=== PATIENT | female | born 1945 | race Caucasian/White ===

== ENCOUNTER 2022-01-15 21:59 | Emergency (ER) | payer BC, OTHER ==
[2022-01-16] MEDS ORDERED: HYDROcodone/Acetaminophen 10/325 mg Tablet ONE (00:20)
== END 2022-01-16 00:41 | disposition home or self-care (01) ==
LOC: ERS 21:59
DX: M62.838 Other muscle spasm (principal)

== ENCOUNTER 2022-01-30 10:46 | Outpatient (CLI) | payer MEDICARE | END 2022-01-30 10:47 | disposition home or self-care (01) | LOC: MRI 10:46 | PROVIDERS: ATTEND Nurse Practitioner Family | DX: M47.816 Spondylosis without myelopathy or radiculopathy, lumbar region (principal); M48.061 Spinal stenosis, lumbar region without neurogenic claudication; M43.16 Spondylolisthesis, lumbar region; N28.9 Disorder of kidney and ureter, unspecified | CPT/HCPCS: 72148 ==

== ENCOUNTER 2022-02-06 07:34 | Outpatient (CLI) | payer MEDICARE | END 2022-02-06 07:35 | disposition home or self-care (01) | LOC: BICCT 07:34 | PROVIDERS: ATTEND Nurse Practitioner Family | DX: R93.89 Abnormal findings on diagnostic imaging of other specified body structures (principal); M47.816 Spondylosis without myelopathy or radiculopathy, lumbar region; M54.50 Low back pain, unspecified; N28.9 Disorder of kidney and ureter, unspecified | CPT/HCPCS: 74178 ==